=== PATIENT | male | born 1985 | race Two or more races ===

== ENCOUNTER 2017-03-27 01:24 | Emergency (ER) | payer BC, OTHER ==
[~2017-03-27] VITALS: Ht 170.2 cm; Wt 76.2 kg
[2017-03-27 01:35] VITALS: BP 125/77
[2017-03-27] MEDS ORDERED: ALBUTEROL SULF 2.5 MG/0.5ML(0.5%) NEB SOLN NEB ONE (01:45)
[2017-03-27] MEDS ORDERED: IPRATROPIUM BROM 0.5 MG/2.5ML INH SOL NEB ONE (01:45)
[2017-03-27] MEDS ORDERED: methylPREDNISolone SOD SUCC 125 MG/2 ML VL IM ONE (04:15)
== END 2017-03-27 04:27 | disposition home or self-care (01) ==
LOC: ER 01:25
DX: J45.909 Unspecified asthma, uncomplicated (principal)
CPT/HCPCS: 71020; 94640; 96372; 99284; J2930

== ENCOUNTER 2022-02-13 18:17 | Emergency (ER) | payer BC, OTHER ==
[~2022-02-13] VITALS: Ht 167.6 cm; Wt 80.0 kg
[2022-02-13 19:22] VITALS: BP 152/88
[2022-02-13] MEDS ORDERED: IPRATROPIUM BROM 0.5 MG/2.5ML INH SOL NEB ONE (19:30)
[2022-02-13] MEDS ORDERED: ALBUTEROL SULF 2.5 MG/0.5ML(0.5%) NEB SOLN NEB ONE (19:30)
[2022-02-13] MEDS ORDERED: guaiFENesin-DM 100/10mg/5ml SYR PO ONE (19:30)
[2022-02-13] MEDS ORDERED: ALBUAER3 IN (21:48)
[2022-02-13] MEDS ORDERED: ALBU108A5 IN (21:48)
[2022-02-13] MEDS ORDERED: AZITTAB PO (21:48)
[2022-02-13] MEDS ORDERED: PRED20TA2 PO (21:48)
== END 2022-02-13 22:00 | disposition home or self-care (01) ==
LOC: ER 18:19
DX: J45.901 Unspecified asthma with (acute) exacerbation (principal); J06.9 Acute upper respiratory infection, unspecified; Z20.822 Contact with and (suspected) exposure to COVID-19
CPT/HCPCS: 36415; 71046; 87426; 87804; 94640; 99284; J7644